=== PATIENT | male | born 1940 | race Caucasian/White ===

== ENCOUNTER 2016-06-20 11:04 | Emergency (ER) | payer MEDICARE ==
[2016-01-11 13:03] VITALS: BMI 27.2
[~2016-06-20 11:04] MED LIST: AMBIEN10 MG PO; ASPIRIN325 MG PO; COZAAR100 MG PO; DEPAKOTE ER500 MG PO; FLOMAX0.4 MG PO; GABAPENTIN100 MG PO; HYDROCODONE-APA1 TAB PO; LEVOXYL75 MCG PO; LODINE400 MG PO; NEURONTIN 300300 MG PO; PROTONIX40 MG PO; TRAZODONE HCL50 MG PO; ZANAFLEX4 MG PO
[2016-06-20 11:41] LABS: BASOPHILS 0.2 % (0.0-2.0); EOSINOPHILS 4.8 % (0-7); HEMATOCRIT 44.7 % (42.0-54.0); HEMOGLOBIN 15.3 g/dL (13.5-17.5); IMMATURE GRANULOCYTES 0.4 % (0-5); MCH 33.9 pg (26.0-34.0); MCHC 34.2 g/dL (31.0-37.0); MCV 99.1 fL (80.0-100.0); MEAN PLATELET VOLUME 10.1 fL (7.4-10.4); MONOCYTES 11.2 % (2-11); NEUTROPHILS 69.4 % (40-80); PLATELET COUNT 142 10x3/uL (130-400); RBC 4.51 10x6/uL (4.20-6.10); WBC 10.4 10x3/uL (4.8-10.8)
[2016-06-20 11:42] LABS: APPEARANCE CLEAR (CLEAR); BILIRUBIN NEGATIVE (NEGATIVE); COLOR YELLOW (YELLOW); GLUCOSE NEGATIVE (NEGATIVE); KETONE NEGATIVE (NEGATIVE); LEUKOCYTE ESTERASE NEGATIVE (NEGATIVE); NITRITE NEGATIVE (NEGATIVE); PROTEIN NEGATIVE (NEGATIVE)
[2016-06-20 11:51] LABS: CALCIUM 9.1 mg/dL (8.5-10.1); CARBON DIOXIDE 29.2 mmol/L (21.0-32.0); CREATININE - SERUM 1.3 mg/dL (0.6-1.3); POTASSIUM - SERUM 4.2 mmol/L (3.5-5.1)
== END 2016-06-20 13:22 | disposition home or self-care (01) ==
LOC: D.ER 11:04
PROVIDERS: Family Medicine
DX: R04.0 Epistaxis (principal); R50.82 Postprocedural fever; I10 Essential (primary) hypertension; E03.9 Hypothyroidism, unspecified; G25.81 Restless legs syndrome; I49.5 Sick sinus syndrome; Z95.0 Presence of cardiac pacemaker

== ENCOUNTER → 2016-09-30 09:07 | Outpatient (CLI) | payer MEDICARE ==
[2016-01-11 13:03] VITALS: BMI 27.2
== END | disposition home or self-care (01) ==
LOC: D.CT 09:07
DX: R41.82 Altered mental status, unspecified (principal)

== ENCOUNTER 2016-10-27 11:12 | Emergency (ER) | payer MEDICARE ==
[2016-01-11 13:03] VITALS: BMI 27.2
[2016-10-27 13:01] LABS: BASOPHILS 0.5 % (0-2); HEMATOCRIT 38.9 % (42.0-54.0); HEMOGLOBIN 13.1 g/dL (13.5-17.5); IMMATURE GRANULOCYTES 0.2 % (0-5); LYMPHOCYTES 39.1 % (15-50); MCH 33.4 pg (26.0-34.0); MCHC 33.7 g/dL (31.0-37.0); MCV 99.2 fL (80.0-100.0); MEAN PLATELET VOLUME 10.5 fL (7.4-10.4); MONOCYTES 8.5 % (2-11); NEUTROPHILS 41.7 % (40-80); RBC 3.92 10x6/uL (4.20-6.10); RDW 13.5 % (11.5-14.5)
[2016-10-27 13:07] LABS: PLATELET COUNT 108 10x3/uL (130-400)
[2016-10-27 13:14] LABS: ALBUMIN 2.8 g/dL (3.4-5.0); ANION GAP 8.5 mmol/L (8-16); BILIRUBIN - TOTAL 0.41 mg/dL (0.2-1.3); CARBON DIOXIDE 27.5 mmol/L (21.0-32.0); CREATININE - SERUM 1.5 mg/dL (0.6-1.3); PROTEIN - SERUM 5.4 g/dL (6.4-8.2)
== END 2016-10-27 15:28 | disposition home or self-care (01) ==
LOC: D.ER 11:12
PROVIDERS: Physician Assistant
DX: I95.9 Hypotension, unspecified (principal); Z79.01 Long term (current) use of anticoagulants; Z86.718 Personal history of other venous thrombosis and embolism; I10 Essential (primary) hypertension; K21.9 Gastro-esophageal reflux disease without esophagitis; E03.9 Hypothyroidism, unspecified; Z95.0 Presence of cardiac pacemaker

== ENCOUNTER 2016-10-31 12:27 | Emergency (ER) | payer MEDICARE ==
[2016-01-11 13:03] VITALS: BMI 27.2
== END 2016-10-31 15:12 | disposition home or self-care (01) ==
LOC: D.ER 12:27
DX: I95.1 Orthostatic hypotension (principal); K21.9 Gastro-esophageal reflux disease without esophagitis; Z79.01 Long term (current) use of anticoagulants; I10 Essential (primary) hypertension; E03.9 Hypothyroidism, unspecified; Z95.0 Presence of cardiac pacemaker; G25.81 Restless legs syndrome

== ENCOUNTER 2016-11-02 23:38 | Emergency (ER) | payer MEDICARE ==
[2016-01-11 13:03] VITALS: BMI 27.2
[2016-11-03 01:05] LABS: APPEARANCE CLEAR (CLEAR); BILIRUBIN NEGATIVE (NEGATIVE); COLOR YELLOW (YELLOW); GLUCOSE NEGATIVE (NEGATIVE); KETONE NEGATIVE (NEGATIVE); LEUKOCYTE ESTERASE NEGATIVE (NEGATIVE); NITRITE NEGATIVE (NEGATIVE); PH 7.5 (5.0-6.0); PROTEIN NEGATIVE (NEGATIVE); SPECIFIC GRAVITY 1.005 (1.005-1.020); UROBILINOGEN NORMAL (NORMAL)
[2016-11-03 01:12] LABS: BASOPHILS 0.3 % (0-2); EOSINOPHILS 9.5 % (0-7); HEMATOCRIT 41.9 % (42.0-54.0); HEMOGLOBIN 14.3 g/dL (13.5-17.5); IMMATURE GRANULOCYTES 1.3 % (0-5); MCH 33.4 pg (26.0-34.0); MCHC 34.1 g/dL (31.0-37.0); MCV 97.9 fL (80.0-100.0); MEAN PLATELET VOLUME 10.5 fL (7.4-10.4); MONOCYTES 13.9 % (2-11); PLATELET COUNT 110 10x3/uL (130-400); RBC 4.28 10x6/uL (4.20-6.10); RDW 13.6 % (11.5-14.5); WBC 6.2 10x3/uL (4.8-10.8)
[2016-11-03 01:16] LABS: BACTERIA NONE SEEN /hpf (NONE SEEN); EPITHELIAL CELLS RARE /hpf (0-5); RED CELLS - URINE 0-5 /hpf (0-5); WHITE CELLS - URINE NSEEN /hpf (0-5)
[2016-11-03 01:18] LABS: ALBUMIN 3.5 g/dL (3.4-5.0); ANION GAP 10.5 mmol/L (8-16); BILIRUBIN - TOTAL 0.37 mg/dL (0.2-1.3); CALCIUM 8.8 mg/dL (8.5-10.1); CARBON DIOXIDE 31.6 mmol/L (21.0-32.0); CREATININE - SERUM 1.3 mg/dL (0.6-1.3); POTASSIUM - SERUM 4.1 mmol/L (3.5-5.1); PROTEIN - SERUM 6.7 g/dL (6.4-8.2)
== END 2016-11-03 05:23 | disposition home or self-care (01) ==
LOC: D.ER 23:38
PROVIDERS: Family Medicine
DX: R10.9 Unspecified abdominal pain (principal); K21.9 Gastro-esophageal reflux disease without esophagitis; I10 Essential (primary) hypertension; Z86.718 Personal history of other venous thrombosis and embolism; I95.9 Hypotension, unspecified; E03.9 Hypothyroidism, unspecified; Z95.0 Presence of cardiac pacemaker; G25.81 Restless legs syndrome

== ENCOUNTER → 2016-11-05 15:26 | Outpatient (CLI) | payer MEDICARE ==
[2016-01-11 13:03] VITALS: BMI 27.2
== END | disposition home or self-care (01) ==
LOC: D.US 15:26
DX: R22.43 Localized swelling, mass and lump, lower limb, bilateral (principal); M79.662 Pain in left lower leg; M79.661 Pain in right lower leg

== ENCOUNTER 2016-12-02 00:27 | Emergency (ER) | payer MEDICARE ==
[2016-01-11 13:03] VITALS: BMI 27.2
[2016-12-02 01:19] LABS: BASOPHILS 0.1 % (0-2); EOSINOPHILS 0 % (0-7); HEMATOCRIT 42.9 % (42.0-54.0); IMMATURE GRANULOCYTES 0.9 % (0-5); LYMPHOCYTES 8.4 % (15-50); MCH 33.9 pg (26.0-34.0); MCV 96.8 fL (80.0-100.0); MEAN PLATELET VOLUME 10.5 fL (7.4-10.4); MONOCYTES 8.3 % (2-11); NEUTROPHILS 82.3 % (40-80); PLATELET COUNT 117 10x3/uL (130-400); RBC 4.43 10x6/uL (4.20-6.10); RDW 13.5 % (11.5-14.5); WBC 16.1 10x3/uL (4.8-10.8)
[2016-12-02 01:21] LABS: APPEARANCE CLEAR (CLEAR); BILIRUBIN NEGATIVE (NEGATIVE); COLOR YELLOW (YELLOW); GLUCOSE 500 mg/dL (NEGATIVE); KETONE NEGATIVE (NEGATIVE); LEUKOCYTE ESTERASE NEGATIVE (NEGATIVE); NITRITE NEGATIVE (NEGATIVE); PROTEIN 1+ mg/dL (NEGATIVE); SPECIFIC GRAVITY 1.015 (1.005-1.020); UROBILINOGEN NORMAL (NORMAL)
[2016-12-02 01:22] LABS: BACTERIA NONE SEEN /hpf (NONE SEEN); EPITHELIAL CELLS 0-5 /hpf (0-5); RED CELLS - URINE 0-5 /hpf (0-5); WHITE CELLS - URINE NSEEN /hpf (0-5)
[2016-12-02 01:36] LABS: ALBUMIN 3.6 g/dL (3.4-5.0); ANION GAP 12.3 mmol/L (8-16); BILIRUBIN - TOTAL 0.53 mg/dL (0.2-1.3); CALCIUM 8.4 mg/dL (8.5-10.1); CARBON DIOXIDE 25.5 mmol/L (21.0-32.0); CREATININE - SERUM 1.3 mg/dL (0.6-1.3); POTASSIUM - SERUM 3.8 mmol/L (3.5-5.1); PROTEIN - SERUM 6.8 g/dL (6.4-8.2)
[2016-12-02 04:03] LABS: CREATINE KINASE 132 UL (21-232)
[2016-12-02 04:04] LABS: TROPONIN-I < 0.017 ng/mL (0.000-0.060)
== END 2016-12-02 04:20 | disposition home or self-care (01) ==
LOC: D.ER 00:27
PROVIDERS: Family Medicine
DX: R10.13 Epigastric pain (principal); K29.00 Acute gastritis without bleeding

== ENCOUNTER → 2017-01-04 08:58 | Outpatient (CLI) | payer MEDICARE ==
[2016-01-11 13:03] VITALS: BMI 27.2
== END | disposition home or self-care (01) ==
LOC: D.CT 08:58
DX: I10 Essential (primary) hypertension (principal); R93.429 Abnormal radiologic findings on diagnostic imaging of unspecified kidney

== ENCOUNTER 2017-01-05 09:45 | Emergency (ER) | payer MEDICARE ==
[2016-01-11 13:03] VITALS: BMI 27.2
[2017-01-05 10:23] LABS: BASOPHILS 0 % (0-2); EOSINOPHILS 0 % (0-7); HEMATOCRIT 39.5 % (42.0-54.0); HEMOGLOBIN 13.9 g/dL (13.5-17.5); IMMATURE GRANULOCYTES 0.7 % (0-5); LYMPHOCYTES 10.5 % (15-50); MCH 34.2 pg (26.0-34.0); MCHC 35.2 g/dL (31.0-37.0); MCV 97.3 fL (80.0-100.0); MEAN PLATELET VOLUME 10.5 fL (7.4-10.4); MONOCYTES 6.6 % (2-11); NEUTROPHILS 82.2 % (40-80); PLATELET COUNT 119 10x3/uL (130-400); RBC 4.06 10x6/uL (4.20-6.10); WBC 10.6 10x3/uL (4.8-10.8)
[2017-01-05 10:42] LABS: ALBUMIN 3.2 g/dL (3.4-5.0); ANION GAP 13.9 mmol/L (8-16); BILIRUBIN - TOTAL 0.4 mg/dL (0.2-1.3); CALCIUM 8.6 mg/dL (8.5-10.1); CARBON DIOXIDE 25.3 mmol/L (21.0-32.0); CREATININE - SERUM 1.2 mg/dL (0.6-1.3); POTASSIUM - SERUM 4.2 mmol/L (3.5-5.1); PROTEIN - SERUM 6.1 g/dL (6.4-8.2)
== END 2017-01-05 13:45 | disposition home or self-care (01) ==
LOC: D.ER 09:45
PROVIDERS: Emergency Medicine
DX: R55 Syncope and collapse (principal); I48.2 Chronic atrial fibrillation; E03.9 Hypothyroidism, unspecified; K21.9 Gastro-esophageal reflux disease without esophagitis; Z95.0 Presence of cardiac pacemaker; G25.81 Restless legs syndrome

== ENCOUNTER 2017-01-06 11:05 | Emergency (ER) | payer MEDICARE ==
[2016-01-11 13:03] VITALS: BMI 27.2
[2017-01-06 12:17] LABS: ALKALINE PHOSPHATASE 46 U/L (46-116); ALT (SGPT) 34 U/L (10-68); BILIRUBIN - TOTAL 0.42 mg/dL (0.2-1.3); CALC OSMOLALITY 289 mosm/kg (275-300); CALCIUM 8.3 mg/dL (8.5-10.1); CARBON DIOXIDE 28.3 mmol/L (21.0-32.0); CHLORIDE - SERUM 104 mmol/L (98-107); CREATININE - SERUM 1.1 mg/dL (0.6-1.3); GLUCOSE 180 mg/dL (74-106); PROTEIN - SERUM 5.8 g/dL (6.4-8.2); SODIUM 141 mmol/L (136-145); UREA NITROGEN 25 mg/dL (7-18); eGFR NON AFRICAN AMERICAN 69 mL/min (90-120)
[2017-01-06 12:19] LABS: CREATINE KINASE 38 UL (21-232); VALPROIC ACID (DEPAKOTE) 92.2 ug/mL (50.0-100.0)
[2017-01-06 12:20] LABS: TROPONIN-I < 0.017 ng/mL (0.000-0.060)
[2017-01-06 12:30] LABS: APTT 36.6 SECONDS (22.8-39.4); INR 1.35 (0.85-1.17); PROTIME 16.4 SECONDS (11.6-15.0)
[2017-01-06 12:37] LABS: UDS - AMPHET NEGATIVE QUAL (NEGATIVE); UDS - BARB NEGATIVE QUAL (NEGATIVE); UDS - BENZO POSITIVE QUAL (NEGATIVE); UDS - COCAINE NEGATIVE QUAL (NEGATIVE); UDS - METH NEGATIVE QUAL (NEGATIVE); UDS - OPIATE NEGATIVE QUAL (NEGATIVE); UDS - PCP NEGATIVE QUAL (NEGATIVE); UDS - THC NEGATIVE QUAL (NEGATIVE)
[2017-01-06 12:39] LABS: BASOPHILS 0.1 % (0-2); EOSINOPHILS 0.1 % (0-7); HEMOGLOBIN 13.7 g/dL (13.5-17.5); IMMATURE GRANULOCYTES 0.9 % (0-5); LYMPHOCYTES 19.7 % (15-50); MCH 33.5 pg (26.0-34.0); MCHC 34.3 g/dL (31.0-37.0); MCV 97.8 fL (80.0-100.0); MEAN PLATELET VOLUME 10.8 fL (7.4-10.4); MONOCYTES 7.2 % (2-11); PLATELET COUNT 127 10x3/uL (130-400); RBC 4.09 10x6/uL (4.20-6.10); RDW 13.2 % (11.5-14.5)
[2017-01-06 13:08] LABS: APPEARANCE CLEAR (CLEAR); BILIRUBIN NEGATIVE (NEGATIVE); COLOR YELLOW (YELLOW); GLUCOSE NEGATIVE (NEGATIVE); KETONE NEGATIVE (NEGATIVE); LEUKOCYTE ESTERASE TRACE (NEGATIVE); NITRITE NEGATIVE (NEGATIVE); PROTEIN NEGATIVE (NEGATIVE)
[2017-01-06 13:09] LABS: BACTERIA FEW /hpf (NONE SEEN); EPITHELIAL CELLS 0-5 /hpf (0-5); HYALINE CAST 0-5 /lpf (NONE SEEN); MUCUS <1+ /lpf (NONE SEEN); RED CELLS - URINE RARE /hpf (0-5); WHITE CELLS - URINE 0-5 /hpf (0-5)
== END 2017-01-06 20:22 | disposition other institution (70) ==
LOC: D.ER 11:05
PROVIDERS: Emergency Medicine
DX: R55 Syncope and collapse (principal); I48.91 Unspecified atrial fibrillation; K21.9 Gastro-esophageal reflux disease without esophagitis; E03.9 Hypothyroidism, unspecified; Z95.0 Presence of cardiac pacemaker; G25.81 Restless legs syndrome; R53.83 Other fatigue; R00.2 Palpitations; R41.0 Disorientation, unspecified

== ENCOUNTER → 2017-07-14 09:29 | Outpatient (CLI) | payer MEDICARE ==
[2016-01-11 13:03] VITALS: BMI 27.2
== END | disposition home or self-care (01) ==
LOC: D.CT 09:29
DX: S00.83XA Contusion of other part of head, initial encounter (principal); X58.XXXA Exposure to other specified factors, initial encounter; Y93.89 Activity, other specified; Y92.019 Unspecified place in single-family (private) house as the place of occurrence of the external cause; S70.01XA Contusion of right hip, initial encounter

== ENCOUNTER 2017-07-28 13:41 | Inpatient (IN) | payer MEDICARE ==
--- NOTE | ~2017-07-28 | HP ---
PATIENT: OWEN MENDOZA MEDICAL RECORD: [id number] ACCOUNT: [id number] LOCATION:[id number] : 42 ADMISSION DATE: 07/28/17 HISTORY AND PHYSICAL EXAMINATION HISTORY OF PRESENT ILLNESS: The patient presented to the Emergency Room with increasing weakness, confusion times 1 week, had a reported fall, has had multiple falls. This has been chronic, has had extensive workup. He is on Eliquis. He has a history of hypotension, orthostatic syncope, orthostatic hypotension, atrial fibrillation, hypothyroidism, migraines, and GERD. Denies any fever or chills. REVIEW OF SYSTEMS: GENERAL: No reported change in weight or appetite. HEENT: Denies cephalgia. Denies visual changes. CARDIOVASCULAR: Extensive history as above. Denies chest pain. Denies palpitations. PULMONARY: Denies hemoptysis. Denies cough. Denies wheeze. Denies shortness of breath. GASTROINTESTINAL: Denies hematemesis, hematochezia or melena. GENITOURINARY: Denies dysuria. Denies any change in frequency. MUSCULOSKELETAL: Generalized weakness, frequent falls. PHYSICAL EXAMINATION: VITAL SIGNS: Temperature 97.5, blood pressure 125/72, heart rate 71, respirations 18 and O2 sats 94% on room air. GENERAL: Alert, oriented to person, confusion over events of last several days. HEENT: Normocephalic, atraumatic. Eyes: Pupils are equally round and reactive. Ears: Canals patent, TMs are intact. Nose: Nares patent without drainage. Throat: No erythema, no exudates. NECK: Supple. No lymphadenopathy, no JVD. HEART: Regular rate and rhythm. No S3, S4. No rub. LUNGS: Clear to auscultation bilaterally. Breathing is nonlabored. ABDOMEN: Soft, nontender. Bowel sounds all 4 quadrants. EXTREMITIES: Present times 4, no edema. NEUROLOGIC: No appreciable focal deficits. Does have confusion over last events of the last several days, memory deficits, also unsteady gait, frequent falls. Again, this is a long-term process. LABORATORY DATA AND DIAGNOSTIC STUDIES: CT of the head, no acute intracranial abnormalities, chronic small vessel changes seen. The patient had a chest x-ray per ER records, do not have a report on this. Indication from the ER was right lower lobe pneumonia. The patient is afebrile with normal white count, no cough. Urinalysis; yellow, clear, normal UA. Lactic acid 1.8. CBC: White count 4.4, hemoglobin 14, hematocrit 40.9, platelets 122. There is no shift. INR 1.22. Chemistry shows sodium of 140, potassium 3.9, chloride 104, bicarb 31.5, BUN 20, creatinine 1.2, and glucose 113. AST 93, ALT 107. Albumin is 3.2. Blood cultures were obtained and the blood and urine cultures were obtained in the ER. ASSESSMENT AND PLAN: Frequent falls, confusion. The patient will benefit from neurology eval, not available here. We will ask physical therapy to see and evaluate and stabilize gait. We will have the patient reevaluated as outpatient with neurology if stable. If he deteriorates, he will require transfer to a facility with neurology. Reported signs of pneumonia on chest x-ray, no HISTORY AND PHYSICAL [id number] OWEN MENDOZA clinical findings with pneumonia. We will continue Rocephin 1 gram daily based on ER findings. I believe the primary need for workup is with the falls and the need for neurological and physical therapy workup and evaluation. EKG; sinus rhythm, no reported acute changes. TRANSINT:[id number] Voice Confirmation ID: [id number] DOCUMENT ID: [id number] GARRY KELLY DO at 0815 CC: [id number] DICTATION DATE: 07/29/17 08 CLEAN OUT DRILLER: 07/29/17 0851 ADM IN [place] [id number] [place] [address]
[2017-07-28 14:30] LABS: BASOPHILS 0.2 % (0-2); EOSINOPHILS 6.2 % (0-7); HEMATOCRIT 40.9 % (42.0-54.0); IMMATURE GRANULOCYTES 1.4 % (0-5); LYMPHOCYTES 34.6 % (15-50); MCH 33.6 pg (26.0-34.0); MCHC 34.2 g/dL (31.0-37.0); MCV 98.1 fL (80.0-100.0); MEAN PLATELET VOLUME 9.8 fL (7.4-10.4); MONOCYTES 13.7 % (2-11); NEUTROPHILS 43.9 % (40-80); PLATELET COUNT 122 10x3/uL (130-400); RBC 4.17 10x6/uL (4.20-6.10); RDW 13.7 % (11.5-14.5); WBC 4.4 10x3/uL (4.8-10.8)
[2017-07-28 14:54] LABS: ALBUMIN 3.2 g/dL (3.4-5.0); ANION GAP 8.4 mmol/L (8-16); BILIRUBIN - TOTAL 0.43 mg/dL (0.2-1.3); CALCIUM 8.9 mg/dL (8.5-10.1); CARBON DIOXIDE 31.5 mmol/L (21.0-32.0); CREATININE - SERUM 1.2 mg/dL (0.6-1.3); POTASSIUM - SERUM 3.9 mmol/L (3.5-5.1); PROTEIN - SERUM 6.3 g/dL (6.4-8.2)
[2017-07-28 15:13] LABS: INR 1.22 (0.85-1.17)
[2017-07-28 15:26] LABS: CREATINE KINASE 59 UL (21-232); PRO BNP 110 pg/mL (0-450)
[2017-07-28 15:27] LABS: TROPONIN-I < 0.017 ng/mL (0.000-0.060)
[2017-07-28 16:26] LABS: APPEARANCE CLEAR (CLEAR); BILIRUBIN NEGATIVE (NEGATIVE); COLOR YELLOW (YELLOW); GLUCOSE NEGATIVE (NEGATIVE); KETONE NEGATIVE (NEGATIVE); NITRITE NEGATIVE (NEGATIVE); PROTEIN NEGATIVE (NEGATIVE); UROBILINOGEN NORMAL (NORMAL)
[2017-07-28 22:45] VITALS: BP 166/88; BMI 27.2
[2017-07-29 01:39] VITALS: BP 183/99
[2017-07-29 04:40] VITALS: BP 125/72
[2017-07-29 09:58] VITALS: BP 167/103
[2017-07-29 12:49] VITALS: BP 152/85
[2017-07-29 15:57] VITALS: BP 139/80
[2017-07-29 21:58] VITALS: BP 161/90
[2017-07-30 00:11] VITALS: BP 164/84
[2017-07-30 03:59] LABS: BASOPHILS 0.2 % (0-2); EOSINOPHILS 7.5 % (0-7); HEMATOCRIT 40.6 % (42.0-54.0); IMMATURE GRANULOCYTES 2.3 % (0-5); LYMPHOCYTES 34.5 % (15-50); MCH 33.4 pg (26.0-34.0); MCHC 34.5 g/dL (31.0-37.0); MCV 96.9 fL (80.0-100.0); MONOCYTES 14.6 % (2-11); NEUTROPHILS 40.9 % (40-80); PLATELET COUNT 131 10x3/uL (130-400); RBC 4.19 10x6/uL (4.20-6.10); RDW 13.6 % (11.5-14.5)
[2017-07-30 04:02] LABS: WBC 5.6 10x3/uL (4.8-10.8)
[2017-07-30 04:17] LABS: ANION GAP 12.7 mmol/L (8-16); CALCIUM 8.2 mg/dL (8.5-10.1); CARBON DIOXIDE 27.1 mmol/L (21.0-32.0); CREATININE - SERUM 1.2 mg/dL (0.6-1.3); POTASSIUM - SERUM 3.8 mmol/L (3.5-5.1)
[2017-07-30 05:16] VITALS: BP 114/86
[2017-07-30 08:39] VITALS: BP 133/83
[2017-07-30 13:14] VITALS: BP 139/76
[2017-07-30 16:48] VITALS: BP 127/72
[2017-07-30 21:35] VITALS: BP 152/88
[2017-07-31 00:45] VITALS: BP 147/92
[2017-07-31 04:54] VITALS: BP 151/89
[2017-07-31 05:20] LABS: BASOPHILS 0.5 % (0-2); EOSINOPHILS 5.6 % (0-7); HEMATOCRIT 43.3 % (42.0-54.0); HEMOGLOBIN 14.8 g/dL (13.5-17.5); IMMATURE GRANULOCYTES 1.6 % (0-5); LYMPHOCYTES 35.3 % (15-50); MCH 33.6 pg (26.0-34.0); MCHC 34.2 g/dL (31.0-37.0); MCV 98.2 fL (80.0-100.0); MEAN PLATELET VOLUME 10.5 fL (7.4-10.4); MONOCYTES 14.7 % (2-11); NEUTROPHILS 42.3 % (40-80); PLATELET COUNT 112 10x3/uL (130-400); RBC 4.41 10x6/uL (4.20-6.10); WBC 6.3 10x3/uL (4.8-10.8)
[2017-07-31 05:26] LABS: ANION GAP 12.2 mmol/L (8-16); CALCIUM 8.4 mg/dL (8.5-10.1); CARBON DIOXIDE 27.5 mmol/L (21.0-32.0); CREATININE - SERUM 1.2 mg/dL (0.6-1.3); POTASSIUM - SERUM 3.7 mmol/L (3.5-5.1)
[2017-07-31 08:12] VITALS: BP 159/85
[2017-07-31] MEDS ORDERED: ZITHROMAX250 MG PO (09:17)
[2017-07-31] MEDS ORDERED: OMNICEF300 MG PO (09:17)
[2017-07-31 12:23] VITALS: BP 135/65; BP 70/38
== END 2017-07-31 16:00 | DRG 947 ==
LOC: D.ER 13:41 → D.MS 18:46
PROVIDERS: Emergency Medicine; Family Medicine; Nurse Practitioner Family
DX: R53.1 Weakness (principal); J18.9 Pneumonia, unspecified organism; R41.0 Disorientation, unspecified; G20 Parkinson's disease; Z91.81 History of falling

== ENCOUNTER 2017-07-31 14:27 | Inpatient (IN) | payer MEDICARE ==
[~2017-07-31] VITALS: Ht 182.9 cm; Wt 90.7 kg
--- NOTE | ~2017-07-31 | RHP ---
PATIENT: OWEN MENDOZA MEDICAL RECORD: [id number] ACCOUNT: [id number] LOCATION:[id number] : 41 ADMISSION DATE: 07/31/17 REHABILITATION HISTORY AND PHYSICAL EXAMINATION POST ADMISSION PHYSICIAN EXAMINATION DATE OF ADMISSION: 07/31/2017 ADMITTING DIAGNOSIS: Parkinson's disease. HISTORY OF PRESENT ILLNESS: The patient is a 77-year-old gentleman who is admitted to rehab with working diagnosis of Parkinson's disease. He was admitted to the acute hospital on 07/28. He was in the Emergency Room with increasing weakness, confusion for a week, and reported fall. He has had multiple falls this month. This has been a chronic problem. He had an extensive workup at [facility]. He is on Eliquis. He has a history of hypotension, orthostatic syncope, orthostatic hypotension, atrial fib, hypothyroidism, migraines, and reflux. On exam, he is alert and oriented to person, but he has some confusion. The patient has had regular heart rate. EKG shows normal sinus rhythm. CT of his head showed no intracranial abnormalities. He did have some small chronic vessel changes seen. X-ray did show a right lower lobe pneumonia. He was admitted with pneumonia and started on IV antibiotics based on ER report; however, the primary need for workup was falls and need for neurological and physical therapy during his stay. Prior to a month ago, he was quite independent with ADLs and mobility. He drove and worked in his yard. In July, he has had 4 falls, increased weakness, confusion, and worsening tremor. He is moderate to max assist for ADLs, needing his to dress him, and mobility with cane or walker. He is motivated to regain his strength so he can return back home and get back to his prior level of functioning hopefully. Comorbidities in this patient include pneumonia, weakness, confusion, AFib at times, hypotension, orthostatic hypotension, memory deficit, unsteady gait, migraines, essential tremor, osteoarthritis, and pacemaker placement in the past. PAST MEDICAL HISTORY: Includes hypotension, syncope, atrial fib, hypothyroidism, migraines, reflux. PAST SURGICAL HISTORY: Includes pacemaker placement and gallbladder surgery. ALLERGIES: NAPROXEN. CURRENT MEDICATIONS: Include aspirin 325 mg daily. He is on Flomax 0.4 mg daily, Protonix 40 mg daily, Cozaar 100 mg daily, Synthroid 75 mcg daily, Depakote 500 mg daily. He is finishing up a dose of Zithromax; Zanaflex 4 mg q. 8 hours p.r.n.; Neurontin 100 mg b.i.d., he is also on 300 mg with this. He is on Omnicef 300 mg q. 12 hours and he is on polyethylene glycol 17 grams in 8 ounces of water daily. HABITS: No alcohol or tobacco use. FAMILY HISTORY: Noncontributory. SOCIAL HISTORY: The patient hopes to return back home and get back to his prior level of functioning. HISTORY AND PHYSICAL [id number] OWEN MENDOZA REVIEW OF SYSTEMS: GENERAL: He does complain of some weakness. HEENT: He denies cold, cough, or congestion. CARDIOVASCULAR: He denies chest pain. PHYSICAL EXAMINATION: VITAL SIGNS: Stable. Afebrile. GENERAL: An elderly gentleman, in no acute distress, alert upon exam. HEENT: Normocephalic and atraumatic. Mucosa moist. NECK: Supple. No lymphadenopathy. LUNGS: Clear at this time. HEART: Irregular rate and rhythm. ABDOMEN: Benign. EXTREMITIES: No clubbing, cyanosis, or edema. NEUROLOGIC: He does have a flat affect. His white count is 6.0, H&H 14 and 42, and platelet count is 122. Sodium 141, potassium 3.8, BUN and creatinine of 18 and 1.2, and blood sugar is noted to be 180. ASSESSMENT: This is a 77-year-old gentleman admitted to rehab with working diagnosis of Parkinson's with multiple falls. The patient has potential to make improvement. We instituted the following multidisciplinary therapies to include, but not limited to physical, occupational, respiratory, speech, nutritional services, prosthetics, and orthotics. Given his complex condition and risk for more complications, rehabilitation services cannot be provided at a lower level of care such as a fci facility. PLAN: 1. Admit to [facility] for intensive inpatient therapy to include the following disciplines; a. Physical therapy to improve gait, all transfer skills, bed mobility, and modifying level. b. Occupational therapy to improve activities of daily living to a modified independent level. c. Case management to assist with discharge planning and placement options. d. Nutrition to assist with nutritional needs. e. Rehabilitation nursing to assist in monitoring the patient's underlying conditions and to assist with any type of bowel or bladder management. 2. The patient's current medication will be continued. 3. The patient will be placed on standard fall precautions. 4. Estimated length of stay is approximately 7-10 days. 5. Discuss this patient during care team staff meeting this week. TRANSINT:[id number] Voice Confirmation ID: [id number] DOCUMENT ID: [id number] AMAURY notes whether there has been none or any medical/functional change since admission: - No change since pre-admission screen. AMAURY attests patient continues to be appropriate for IRF: - Continues to be appropriated for in-patient rehab. HISTORY AND PHYSICAL [id number] OWEN MENDOZA SCOTT MD at 0847 CC: [id number] DICTATION DATE: 08/01/17 1119 BALER OPERATOR: 08/01/17 1348 ADM IN [place] [id number] [place] [id number]
[~2017-07-31 14:27] MED LIST changes: +OMNICEF300 MG PO; +ZITHROMAX250 MG PO
[2017-07-31 16:17] VITALS: BP 138/86; BMI 27.2
[2017-07-31 22:12] VITALS: BP 133/68
[2017-08-01 08:38] VITALS: BP 167/105
[2017-08-01 10:02] LABS: BASOPHILS 0.5 % (0-2); EOSINOPHILS 6.5 % (0-7); HEMOGLOBIN 14.4 g/dL (13.5-17.5); IMMATURE GRANULOCYTES 1.5 % (0-5); LYMPHOCYTES 28.1 % (15-50); MCH 33.6 pg (26.0-34.0); MCHC 34.3 g/dL (31.0-37.0); MCV 98.1 fL (80.0-100.0); MEAN PLATELET VOLUME 10.1 fL (7.4-10.4); MONOCYTES 13.2 % (2-11); NEUTROPHILS 50.2 % (40-80); PLATELET COUNT 122 10x3/uL (130-400); RBC 4.28 10x6/uL (4.20-6.10)
[2017-08-01 10:19] LABS: ANION GAP 11.9 mmol/L (8-16); CALCIUM 8.1 mg/dL (8.5-10.1); CARBON DIOXIDE 26.9 mmol/L (21.0-32.0); CREATININE - SERUM 1.2 mg/dL (0.6-1.3); POTASSIUM - SERUM 3.8 mmol/L (3.5-5.1)
[2017-08-01 19:34] VITALS: BP 136/91
[2017-08-02 05:43] LABS: BASOPHILS 0.5 % (0-2); EOSINOPHILS 8.7 % (0-7); HEMATOCRIT 43.6 % (42.0-54.0); HEMOGLOBIN 14.8 g/dL (13.5-17.5); IMMATURE GRANULOCYTES 1.6 % (0-5); LYMPHOCYTES 35.3 % (15-50); MCH 33.3 pg (26.0-34.0); MCHC 33.9 g/dL (31.0-37.0); MCV 98.2 fL (80.0-100.0); MEAN PLATELET VOLUME 10.3 fL (7.4-10.4); MONOCYTES 13.7 % (2-11); NEUTROPHILS 40.2 % (40-80); PLATELET COUNT 144 10x3/uL (130-400); RBC 4.44 10x6/uL (4.20-6.10); RDW 13.9 % (11.5-14.5); WBC 6.2 10x3/uL (4.8-10.8)
[2017-08-02 06:09] LABS: ANION GAP 15.8 mmol/L (8-16); CALCIUM 8.2 mg/dL (8.5-10.1); CARBON DIOXIDE 23.9 mmol/L (21.0-32.0); CREATININE - SERUM 1.2 mg/dL (0.6-1.3); POTASSIUM - SERUM 3.7 mmol/L (3.5-5.1)
[2017-08-02 08:00] VITALS: BP 154/95
[2017-08-02 12:09] VITALS: Ht 182.9 cm; Wt 90.7 kg
[2017-08-02 22:15] VITALS: BP 158/93
[2017-08-03 08:16] VITALS: BP 164/110
[2017-08-04 06:42] LABS: BASOPHILS 0.4 % (0-2); EOSINOPHILS 9.1 % (0-7); HEMATOCRIT 40.5 % (42.0-54.0); HEMOGLOBIN 13.5 g/dL (13.5-17.5); IMMATURE GRANULOCYTES 2.4 % (0-5); LYMPHOCYTES 36.5 % (15-50); MCH 32.7 pg (26.0-34.0); MCHC 33.3 g/dL (31.0-37.0); MCV 98.1 fL (80.0-100.0); MEAN PLATELET VOLUME 10.1 fL (7.4-10.4); MONOCYTES 13.4 % (2-11); NEUTROPHILS 38.2 % (40-80); PLATELET COUNT 143 10x3/uL (130-400); RBC 4.13 10x6/uL (4.20-6.10); RDW 13.8 % (11.5-14.5); WBC 4.6 10x3/uL (4.8-10.8)
[2017-08-04 07:03] LABS: CALC OSMOLALITY 287 mosm/kg (275-300); CALCIUM 8.4 mg/dL (8.5-10.1); CARBON DIOXIDE 28.6 mmol/L (21.0-32.0); CHLORIDE - SERUM 106 mmol/L (98-107); GLUCOSE 85 mg/dL (74-106); POTASSIUM - SERUM 3.7 mmol/L (3.5-5.1); SODIUM 144 mmol/L (136-145); UREA NITROGEN 18 mg/dL (7-18); eGFR NON AFRICAN AMERICAN 77 mL/min (90-120)
[2017-08-04 08:07] VITALS: BP 159/99
[2017-08-04 20:44] VITALS: BP 146/91
[2017-08-05 08:00] VITALS: BP 134/80
[2017-08-05 22:09] VITALS: BP 162/103
[2017-08-06 06:27] LABS: BASOPHILS 0.4 % (0-2); EOSINOPHILS 8.1 % (0-7); HEMATOCRIT 38.7 % (42.0-54.0); IMMATURE GRANULOCYTES 0.9 % (0-5); LYMPHOCYTES 39.3 % (15-50); MCH 32.9 pg (26.0-34.0); MCHC 33.6 g/dL (31.0-37.0); MEAN PLATELET VOLUME 9.9 fL (7.4-10.4); MONOCYTES 14.8 % (2-11); NEUTROPHILS 36.5 % (40-80); PLATELET COUNT 140 10x3/uL (130-400); RBC 3.95 10x6/uL (4.20-6.10); WBC 4.6 10x3/uL (4.8-10.8)
[2017-08-06 06:35] LABS: CALC OSMOLALITY 284 mosm/kg (275-300); CARBON DIOXIDE 27.7 mmol/L (21.0-32.0); CHLORIDE - SERUM 107 mmol/L (98-107); GLUCOSE 107 mg/dL (74-106); POTASSIUM - SERUM 4.3 mmol/L (3.5-5.1); SODIUM 142 mmol/L (136-145); UREA NITROGEN 18 mg/dL (7-18); eGFR NON AFRICAN AMERICAN 77 mL/min (90-120)
[2017-08-06 06:59] LABS: CALCIUM 8.1 mg/dL (8.5-10.1)
[2017-08-06 08:29] VITALS: BP 170/98
== END 2017-08-06 13:27 | disposition home health service (06) | DRG 56 ==
LOC: D.REHAB 14:27
PROVIDERS: Emergency Medicine
DX: G20 Parkinson's disease (principal); J18.9 Pneumonia, unspecified organism; I95.9 Hypotension, unspecified; R26.81 Unsteadiness on feet; G43.909 Migraine, unspecified, not intractable, without status migrainosus; G25.0 Essential tremor; M19.90 Unspecified osteoarthritis, unspecified site; R41.3 Other amnesia; R41.0 Disorientation, unspecified; I48.91 Unspecified atrial fibrillation; R13.10 Dysphagia, unspecified; R55 Syncope and collapse; Z95.0 Presence of cardiac pacemaker

== ENCOUNTER 2019-06-22 10:36 | Emergency (ER) | payer MEDICARE ==
[~2019-06-22] VITALS: Ht 182.9 cm; Wt 86.4 kg
[2019-06-22 10:50] VITALS: Ht 182.9 cm; Wt 86.4 kg
[2019-06-22 11:17] LABS: BASOPHILS 0 % (0-2); EOSINOPHILS 0 % (0-7); HEMATOCRIT 39.7 % (42.0-54.0); HEMOGLOBIN 13.7 g/dL (13.5-17.5); IMMATURE GRANULOCYTES 0.4 % (0-5); LYMPHOCYTES 9.2 % (15-50); MCH 33.7 pg (26.0-34.0); MCHC 34.5 g/dL (31.0-37.0); MCV 97.5 fL (80.0-100.0); MEAN PLATELET VOLUME 9.7 fL (7.4-10.4); MONOCYTES 5.6 % (2-11); NEUTROPHILS 84.8 % (40-80); RBC 4.07 10x6/uL (4.20-6.10); RDW 13.3 % (11.5-14.5); WBC 11.6 10x3/uL (4.8-10.8)
[2019-06-22 11:25] LABS: CALC OSMOLALITY 287 mosm/kg (275-300); CALCIUM 8.9 mg/dL (8.5-10.1); CARBON DIOXIDE 28.2 mmol/L (21.0-32.0); CHLORIDE - SERUM 105 mmol/L (98-107); CREATININE - SERUM 1.1 mg/dL (0.6-1.3); GLUCOSE 131 mg/dL (74-106); POTASSIUM - SERUM 4.2 mmol/L (3.5-5.1); SODIUM 142 mmol/L (136-145); UREA NITROGEN 22 mg/dL (7-18); eGFR NON AFRICAN AMERICAN 69 mL/min (90-120)
[2019-06-22 11:29] LABS: PLATELET COUNT 184 10x3/uL (130-400)
[2019-06-22 11:36] LABS: APTT 38.7 SECONDS (22.8-39.4); INR 1.02 (0.85-1.17); PROTIME 13.4 SECONDS (11.6-15.0)
[2019-06-22 11:42] LABS: ALBUMIN 3.7 g/dL (3.4-5.0); ALKALINE PHOSPHATASE 53 U/L (46-116); ALT (SGPT) 27 U/L (10-68); BILIRUBIN - TOTAL 0.47 mg/dL (0.2-1.3); CKMB 2.2 U/L (0.0-3.6); CREATINE KINASE 51 UL (21-232); MAGNESIUM - SERUM 2.4 mg/dL (1.8-2.4); PROTEIN - SERUM 6.9 g/dL (6.4-8.2); TROPONIN-I < 0.017 ng/mL (0.000-0.060)
[2019-06-22 15:00] VITALS: BP 178/96
== END 2019-06-22 14:53 | disposition home or self-care (01) ==
LOC: D.ER 10:36
PROVIDERS: Family Medicine
DX: R07.9 Chest pain, unspecified (principal); K21.9 Gastro-esophageal reflux disease without esophagitis; I10 Essential (primary) hypertension; Z95.0 Presence of cardiac pacemaker